=== PATIENT | male | born 1995 | race Caucasian/White ===

== ENCOUNTER 2021-06-11 16:04 | Emergency (ER) | payer MEDICAID ==
[~2021-06-11] VITALS: Ht 172.7 cm; Wt 73.0 kg
[2021-06-11 16:06] VITALS: BP 140/94
== END 2021-06-11 17:49 | disposition left against medical advice (07) ==
LOC: ER 16:04
DX: Z53.21 Procedure and treatment not carried out due to patient leaving prior to being seen by health care provider (principal); J45.909 Unspecified asthma, uncomplicated

== ENCOUNTER 2022-01-08 00:47 | Emergency (ER) | payer MEDICAID ==
[~2022-01-08] VITALS: Ht 175.3 cm; Wt 78.4 kg
[2022-01-08] MEDS ORDERED: FAMOTIDINE 20MG/2ML VIAL IV STA (02:12)
[2022-01-08] MEDS ORDERED: MAGNESIUM/ALUMINUM HYDROXIDE/SIMETHICONE 30ML UDC PO STA (02:12)
[2022-01-08] MEDS ORDERED: ONDANSETRON HCL 4MG/2ML INJ IV STA (02:12)
[2022-01-08] MEDS ORDERED: SODIUM CHLORIDE 0.9% 1,000 ML IV ONE (02:15)
[2022-01-08 03:07] LABS: BASOPHILS % 0.2 % (0.0-2.0); EOSINOPHILS % 0.1 % (0.0-5.0); HEMATOCRIT. 43.5 % (42.0-52.0); HEMOGLOBIN. 14.7 g/dL (14.0-18.0); LYMPHOCYTES % 9.9 % (20.0-50.0); MEAN CORPUSCULAR HEMOGLOBIN 31.5 pg (28.0-32.0); MEAN CORPUSCULAR VOLUME 93.3 fL (80.0-94.0); MEAN PLATELET VOLUME 9.2 fl (7.4-10.4); MONOCYTES % 9.3 % (2.0-8.0); NEUTROPHILS % 80.5 % (40.0-76.0); PLATELET 284 x1000/uL (130-400); RED BLOOD CELL COUNT 4.66 mill/uL (4.7-6.1); RED CELL DISTRIBUTION WIDTH 12.9 % (11.6-14.6)
[2022-01-08 03:11] LABS: CHLORIDE 107 mEq/L (98-107)
[2022-01-08] MEDS ORDERED: ONDA4TAB11 PO (06:57)
[2022-01-08] MEDS ORDERED: AMOX1TAB16 MT (06:57)
[2022-01-08] MEDS ORDERED: MAG-55 MT (06:57)
[2022-01-08 07:00] VITALS: BP 118/81
== END 2022-01-08 07:09 | disposition home or self-care (01) ==
LOC: ER 00:47
DX: R07.89 Other chest pain (principal); J45.909 Unspecified asthma, uncomplicated
CPT/HCPCS: 36415; 71045; 74176; 80053; 83605; 83690; 83880; 85025; 85379; 93005; 96361; 96374; 96375; 99285; J2405; J3490; J7030